=== PATIENT | female | born 1940 | race Two or more races ===

== ENCOUNTER → 2023-03-26 | Emergency (ER) | payer OTHER ==
[~2023-03-26] VITALS: Ht 157.5 cm; Wt 59.0 kg
[~2023-03-26] MED LIST: KETOROLAC TROMETHAMINE 60 MG VIAL IM STA
== END | disposition left against medical advice (07) ==
LOC: ER 12:10
DX: M51.26 Other intervertebral disc displacement, lumbar region (principal); Z88.0 Allergy status to penicillin
CPT/HCPCS: 72100; 96372; 99283; J1885